=== PATIENT | female | born 1995 | race Caucasian/White ===

== ENCOUNTER 2024-08-28 07:39 | Inpatient (IN) | payer MEDICAID ==
[2024-08-28 21:00] LABS: Appearance Clear (Clear); Bacteria Many /HPF (None Seen); Bilirubin Negative (Negative); Blood Small (Negative); Epithelial Cells Few /HPF (None Seen); Glucose, Urine Negative (Negative); Hyaline Casts NONE SEEN /LPF (0-2); Ketones Negative (Negative); Leukocyte Esterase Large (Negative); Nitrite Negative (Negative); Protein,Urine Dip Negative (Negative); Specific Gravity <=1.005 (1.005-1.030); Urobilinogen 0.2 mg/dL (0.2); WBC 21-50 /HPF (0-5)
[2024-08-28] MEDS ORDERED: XYLOCAINE 1% HCL 20 ML MDV IJ PRN (21:23)
[2024-08-28] MEDS ORDERED: Zofran 4 MG/2 ML VIAL IV PRN (21:23)
[2024-08-28 21:25] LABS: Amphetamine,Urine NEGATIVE (NEGATIVE); Barbiturate,Urine NEGATIVE (NEGATIVE); Benzodiazepine,Urine NEGATIVE (NEGATIVE); Cocaine,Urine NEGATIVE (NEGATIVE); Methadone,Urine NEGATIVE (NEGATIVE); Opiate,Urine NEGATIVE (NEGATIVE); PCP,Urine NEGATIVE (NEGATIVE); THC,Urine NEGATIVE (NEGATIVE)
[2024-08-28 21:54] LABS: Absolute Neutrophil Ct (ANC) 6.94 x10^3/uL (1.56-6.13); BASOPHIL % 0.2 % (0.1-1.2); Basophil (Absolute #) 0.02 x10^3/uL (0.01-0.08); Eosinophil % 2.5 % (0.7-5.8); Eosinophil (Absolute #) 0.25 x10^3/uL (0.04-0.36); Hematocrit 38.9 % (34.1-44.9); Hemoglobin 13.1 g/dL (11.2-15.7); IMMATURE GRAN # 0.09 x10^3u/L (0.001-0.031); IMMATURE GRAN % 0.9 % (0.001-0.429); Lymphocyte (Absolute #) 1.88 x10^3/uL (1.18-3.74); Lymphocytes % 18.7 % (19.3-51.7); Mean Cell Volume 88.8 fL (79.4-94.8); Mean Corpuscular Hemoglobin 29.9 pg (25.6-32.2); Mean Corpuscular Hgb Concent. 33.7 g/dL (32.2-35.5); Mean Platelet Volume 12.2 fL (9.4-12.3); Monocyte (Absolute #) 0.87 x10^3/uL (0.24-0.86); Monocytes % 8.7 % (4.7-12.5); Platelet Count 163 x10^3/uL (182-369); Red Blood Count 4.38 x10^6/uL (3.93-5.22); Red Cell Distribution Width 12.8 % (11.7-14.4); White Blood Count 10.1 x10^3/uL (3.98-10.04)
[2024-08-28] MEDS ORDERED: ROCEPHIN 1 GM / 100 ML NaCl 1 GM/100 ML IVPB IV ONE (21:59)
[2024-08-28] MEDS: ROCEPHIN 1 GM / 100 ML NaCl 1 GM/100 ML IVPB IV ONE (22:08)
[2024-08-28] MEDS: Lactated Ringers 1,000 ML IV SCH (22:09)
[2024-08-28 22:41] LABS: ABO TYPING O; Antibody Screen NEGATIVE (NEGATIVE); RH TYPING POSITIVE
[2024-08-29] MEDS: STADOL 2 MG IV PRN (00:23)
[2024-08-29] MEDS ORDERED: Ephedrine Sulfate 50 MG/ML IV PRN (05:07)
[2024-08-29] MEDS ORDERED: BRETHINE 1 MG/ML SQ PRN (05:34)
[2024-08-29] MEDS: Lactated Ringers 1,000 ML IV ONE (06:00)
[2024-08-29] MEDS: PITOCIN 30 UNITS/ LR 500 ML 30 UNITS/500 ML PLAST..BAG IV SCH ×2 (06:01→21:24)
[2024-08-29] MEDS: FENTANYL 2 MCG-BUPIV 0.125%-NS 250 ML Epidur 250 ML EPIDURAL SCH (06:46)
[2024-08-29] MEDS ORDERED: Sensorcaine 0.25% 10 ML ONE (09:18)
[2024-08-29] MEDS: TUCKS TP PRN (14:14)
[2024-08-29] MEDS: LANSINOH 40 GM TOP PRN (14:14)
[2024-08-29] MEDS: Dermoplast Spray TP PRN (14:14)
[2024-08-29] MEDS: CORTISONE 1% CREAM TP PRN (19:45)
[2024-08-29] MEDS: MOTRIN 400 MG PO PRN (19:45)
[2024-08-29] MEDS: Docusate Sodium 100 MG PO SCH (21:52)
[2024-08-30] MEDS: TYLENOL EXTRA STRENGTH 500 MG PO PRN (01:09)
[2024-08-30 05:49] LABS: Absolute Neutrophil Ct (ANC) 8.14 x10^3/uL (1.56-6.13); BASOPHIL % 0.2 % (0.1-1.2); Basophil (Absolute #) 0.03 x10^3/uL (0.01-0.08); Eosinophil % 2.7 % (0.7-5.8); Eosinophil (Absolute #) 0.33 x10^3/uL (0.04-0.36); Hematocrit 32.9 % (34.1-44.9); Hemoglobin 10.9 g/dL (11.2-15.7); IMMATURE GRAN # 0.11 x10^3u/L (0.001-0.031); IMMATURE GRAN % 0.9 % (0.001-0.429); Lymphocytes % 19.9 % (19.3-51.7); Mean Cell Volume 89.2 fL (79.4-94.8); Mean Corpuscular Hemoglobin 29.5 pg (25.6-32.2); Mean Corpuscular Hgb Concent. 33.1 g/dL (32.2-35.5); Mean Platelet Volume 12.4 fL (9.4-12.3); Monocyte (Absolute #) 1.08 x10^3/uL (0.24-0.86); Monocytes % 8.9 % (4.7-12.5); Neutrophil % 67.4 % (34.0-71.1); Platelet Count 140 x10^3/uL (182-369); Red Blood Count 3.69 x10^6/uL (3.93-5.22); Red Cell Distribution Width 13.1 % (11.7-14.4); White Blood Count 12.1 x10^3/uL (3.98-10.04)
--- NOTE | 2024-08-30 09:20 | PCM.NOTE ---
Date and Time: 08/30/24918 Subjective Assessment: ppd 1 sp pt resting in bed able to ambulate and tolerate diet vss afebrile abd; soft uterus; firm lochia; mild a/p sp ppd 1 stable for discharge tomorrow should fu in office in 3 wks Objective Data Vital Signs: Vital Signs - 24 hr Temp Pulse Resp BP BP Pulse Ox 08/30/24 07:31 98.4 F 92 H 18 114/56 96 08/30/24 01:31 98.8 F 111 H 18 134/76 98 08/29/24 17:00 98.2 F 88 20 127/82 96 08/29/24 16:00 98.2 F 86 20 117/78 97 08/29/24 15:30 98.2 F 85 20 119/78 97 08/29/24 15:00 98.2 F 91 H 20 117/82 97 08/29/24 14:30 98.0 F 85 20 115/74 99 08/29/24 14:15 98.0 F 105 H 20 125/78 99 08/29/24 14:00 98.0 F 106 H 20 136/86 99 08/29/24 13:45 98.0 F 93 H 20 123/65 99 08/29/24 13:30 98.0 F 112 H 20 123/58 99 08/29/24 13:14 98.2 F 100 H 16 118/60 100 08/29/24 13:00 98.2 F 94 H 16 127/63 100 08/29/24 12:45 98.2 F 104 H 16 122/78 100 08/29/24 12:30 98.2 F 86 16 124/78 100 08/29/24 12:15 98.2 F 89 16 122/78 100 08/29/24 12:00 98.2 F 81 16 123/82 100 08/29/24 11:45 98.2 F 87 16 124/78 99 08/29/24 11:30 98.2 F 95 H 16 138/80 100 08/29/24 11:15 98.2 F 86 16 119/83 100 08/29/24 11:00 98.2 F 99 H 16 124/85 100 08/29/24 10:45 98.2 F 90 16 113/78 100 08/29/24 10:30 98.2 F 85 16 122/79 99 08/29/24 10:15 98.3 F 97 H 16 122/76 99 08/29/24 10:00 98.3 F 101 H 16 126/81 98 08/29/24 09:45 98.3 F 80 16 121/81 98 08/29/24 09:30 98.3 F 80 16 121/81 98 Pain Assessment - Last Documented Pain Intensity [Lower Anterior 3 ] Pain Intensity 3 Pain Scale Used 0-10 Pain Scale Intake and Output: Intake & Output 08/27/24 08/28/24 08/29/24 08/30/24 11:59 11:59 11:59 11:59 Intake Total 4700 600 Output Total 1000 Balance 3700 600 Weight 80.286 kg Lab Results: Lab Results-Last 24 Hours 08/30/24 Range/Units 05:50 WBC 12.1 H (3.98-10.04) x10^3/uL RBC 3.69 L (3.93-5.22) x10^6/uL Hgb 10.9 L (11.2-15.7) g/dL Hct 32.9 L (34.1-44.9) % MCV 89.2 (79.4-94.8) fL MCH 29.5 (25.6-32.2) pg MCHC 33.1 (32.2-35.5) g/dL RDW 13.1 (11.7-14.4) % Plt Count 140 L (182-369) x10^3/uL MPV 12.4 H (9.4-12.3) fL Gran % 67.4 (34.0-71.1) % Immature Gran % (Auto) 0.9 H (0.001-0.429) % Nucleat RBC Rel Count 0.0 (0.00-0.2) % Eos # (Auto) 0.33 (0.04-0.36) x10^3/uL Immature Gran # (Auto) 0.11 H (0.001-0.031) x10^3u/L Absolute Lymphs (auto) 2.40 (1.18-3.74) x10^3/uL Absolute Monos (auto) 1.08 H (0.24-0.86) x10^3/uL Absolute Nucleated RBC 0.00 (0.00-0.012) x10^3u/L Lymphocytes % 19.9 (19.3-51.7) % Monocytes % 8.9 (4.7-12.5) % Eosinophils % 2.7 (0.7-5.8) % Basophils % 0.2 (0.1-1.2) % Absolute Granulocytes 8.14 H (1.56-6.13) x10^3/uL Basophils # 0.03 (0.01-0.08) x10^3/uL Multi-Disciplinary Progress Notes: Multi-Disciplinary Progress Notes 08/29/24 13:22 Respiratory Note by Ysabel Conner stand by for delivery, no respiratory intervention needed at this time. Initialized on 08/29/24 13:22 - END OF NOTE Assessment/Plan (1) Vaginal delivery Current Visit: Yes Status: Acute Code(s): O80 - ENCOUNTER FOR FULL-TERM UNCOMPLICATED DELIVERY
--- NOTE | 2024-08-30 09:23 | PCM.DS ---
Discharge Summary Date of Admission: 08/29/24 07:39 Admitting Physician: RODRIGUEZ BERNAL DO Consults: Consults on Case 08/29/24 05:08 Notify Anesthesia Provider PRN Primary Care Provider: HERON ROLDAN Allergies Allergies bactrim Adverse Reaction (Severe, Uncoded 08/28/24 22:07) Muscle Aches muscle paralysis Hospital Summary - Hospital Course Hospital Course: pt admitted on aug 28 for being in early labor at 39 6/7 wks gestation and was subsequently started on pitocin and delivered live baby girl without com plication on august 29 with noted small left labial tear repaired with 2-0 chromic suture and hemostasis obtained. during period did well able to ambulate and tolerate diet with stable vitals and stable hgb level at 10. pt at at this time stable for discharge on aug 31. all questions answered to her satisfaction and was advised to fu in office in 3 wks. - Vitals & Intake/Output Vital Signs: Vital Signs Temperature 98.4 F 08/30/24 07:31 Pulse Rate 92 H 08/30/24 07:31 Respiratory Rate 18 08/30/24 07:31 Blood Pressure 114/56 08/30/24 07:31 O2 Sat by Pulse Oximetry 96 08/30/24 07:31 Intake & Output: Intake & Output 08/27/24 08/28/24 08/29/24 08/30/24 11:59 11:59 11:59 11:59 Intake Total 4700 600 Output Total 1000 Balance 3700 600 Weight 80.286 kg - Lab Result Diagrams: 08/30/24 05:50 Lab Results-Last 24 Hrs: Lab Results-Last 24 Hours 08/30/24 Range/Units 05:50 WBC 12.1 H (3.98-10.04) x10^3/uL RBC 3.69 L (3.93-5.22) x10^6/uL Hgb 10.9 L (11.2-15.7) g/dL Hct 32.9 L (34.1-44.9) % MCV 89.2 (79.4-94.8) fL MCH 29.5 (25.6-32.2) pg MCHC 33.1 (32.2-35.5) g/dL RDW 13.1 (11.7-14.4) % Plt Count 140 L (182-369) x10^3/uL MPV 12.4 H (9.4-12.3) fL Gran % 67.4 (34.0-71.1) % Immature Gran % (Auto) 0.9 H (0.001-0.429) % Nucleat RBC Rel Count 0.0 (0.00-0.2) % Eos # (Auto) 0.33 (0.04-0.36) x10^3/uL Immature Gran # (Auto) 0.11 H (0.001-0.031) x10^3u/L Absolute Lymphs (auto) 2.40 (1.18-3.74) x10^3/uL Absolute Monos (auto) 1.08 H (0.24-0.86) x10^3/uL Absolute Nucleated RBC 0.00 (0.00-0.012) x10^3u/L Lymphocytes % 19.9 (19.3-51.7) % Monocytes % 8.9 (4.7-12.5) % Eosinophils % 2.7 (0.7-5.8) % Basophils % 0.2 (0.1-1.2) % Absolute Granulocytes 8.14 H (1.56-6.13) x10^3/uL Basophils # 0.03 (0.01-0.08) x10^3/uL Micro Results-Entire Visit: Microbiology 08/29/24 10:00 Urine Culture - Preliminary Urine, Catheterized NO GROWTH TO DATE 08/28/24 20:45 Urine Culture - Final Clean Catch Midstream <10K NORMAL SKIN NANI PROBABLE SKIN CONTAMINANT - Procedures and Test Procedures and Tests throughout Hospitalization: Therapy Orders & Screens 08/29/24 13:22 Standby STAT Comment: Final Diagnosis/Problem List - Final Discharge Diagnosis/Problem (1) Vaginal delivery Current Visit: Yes Status: Acute Code(s): O80 - ENCOUNTER FOR FULL-TERM UNCOMPLICATED DELIVERY - Discharge Disposition: Home, Self-Care Condition: Stable Prescriptions: No Action Pnv No.95/Ferrous Fum/Folic AC [ Vitamins Tablet] 1 tab PO DAILY Ferrous Sulfate [Iron] 325 mg PO DAILY Follow up with: HERON ROLDAN NP [Primary Care Provider] - RODRIGUEZ BERNAL DO [ACTIVE STAFF] - 3 weeks (should call me for any issues that may arise after discharge should fu in office in 3 wks)
[2024-08-30] MEDS: FERREX 150 PO SCH (10:04)
[2024-08-30] MEDS: Adacel Vial IM ONE (10:04)
[2024-08-31 10:25] VITALS: BP 119/81; PULSE 80; RESP 16; TEMP 97.9; O2SAT 98
[2024-08-31 11:20] LABS: RPR Non Reactive (Non Reactive)
== END 2024-08-31 11:52 | disposition home or self-care (01) | DRG 807 ==
LOC: OB 07:39 → UNDOADMOB 20:28 → OBSVTOIN 08-29 07:39 → OB 08-29 08:03 → UNDOADMOB 08-29 08:03
PROVIDERS: ADMIT Obstetrics & Gynecology; ATTEND Obstetrics & Gynecology
PROC: 10E0XZZ Delivery of Products of Conception, External Approach (ICD-10-PCS; principal; 2024-08-29)
PROC: 0HQ9XZZ Repair Perineum Skin, External Approach (ICD-10-PCS; 2024-08-29)
DX: O70.0 First degree perineal laceration during delivery (principal); Z37.0 Single live birth; Z3A.39 39 weeks gestation of pregnancy
CPT/HCPCS: 36415; 59409; 80307; 81001; 85025; 86592; 86850; 86900; 86901; 87086; 90715; 94799; 96372; G0378; G0379; J0595; J0696; J2590; A9270-GY